=== PATIENT | male | born 1995 | race Caucasian/White ===

== ENCOUNTER 2016-07-09 17:36 | Emergency (ER) | payer SELFPAY ==
[~2016-07-09] VITALS: Ht 175.3 cm; Wt 100.7 kg
[2016-07-09 19:18] LABS: BLOOD UREA NITROGEN 15 mg/dL (7-18)
[2016-07-09 20:43] VITALS: BP 135/96
== END 2016-07-09 21:15 | disposition home or self-care (01) ==
LOC: ED 19:27
DX: S06.0X0A Concussion without loss of consciousness, initial encounter (principal); R11.0 Nausea; V89.0XXA Person injured in unspecified motor-vehicle accident, nontraffic, initial encounter; Y93.89 Activity, other specified; Y99.8 Other external cause status; Y92.89 Other specified places as the place of occurrence of the external cause
CPT/HCPCS: 36415; 70450; 71010; 80048; 82040; 85025; 99285